=== PATIENT | male | born 1980 | race Hispanic/Latino ===

== ENCOUNTER 2024-05-21 20:29 | Emergency (ER) | payer SELFPAY ==
[~2024-05-21] VITALS: Ht 160 cm; Wt 90.7 kg
[2024-05-21 20:32] VITALS: TEMP 97.7
[2024-05-21 20:48] LABS: BASOPHILS % 0.3 % (0.0-1.0); EOSINOPHILS # (AUTO) 0.6 (0.0-0.4); EOSINOPHILS % 4.8 % (0.0-6.0); HEMATOCRIT 42.4 % (38.2-49.6); HEMOGLOBIN 14.4 g/dL (14.0-18.0); LYMPHOCYTES # (AUTO) 6.5 (1.0-3.2); LYMPHOCYTES % 54.6 % (18.0-39.1); MEAN CORPUSCULAR HEMOGLOBIN 31.5 pg (28-32); MEAN CORPUSCULAR VOLUME 92.8 fL (81-99); MONOCYTES # (AUTO) 0.3 (0.2-0.8); MONOCYTES % 2.8 % (4.4-11.3); NEUTROPHILS # (AUTO) 4.4 (2.1-6.9); NEUTROPHILS % 36.7 % (38.7-80.0); PLATELET COUNT 301 x10e3/uL (140-360); RED BLOOD COUNT 4.57 x10e6/uL (4.3-5.7); RED CELL DISTRIBUTION WIDTH 13.3 % (11.7-14.4); WHITE BLOOD COUNT 11.98 x10e3/uL (4.8-10.8)
[2024-05-21] MEDS: SODIUM CHLORIDE 0.9% 1000ML 1,000 ML IV ONE (20:52)
[2024-05-21] MEDS: METHYLPREDNISOLONE SOD SUCC 125 MG/2ML VIAL IV ONE (20:52)
[2024-05-21] MEDS: FAMOTIDINE 20 MG/2 ML VIAL IV STA (21:01)
[2024-05-21 21:04] LABS: CORONAVIRUS COVID-19 AG NEGATIVE (NEGATIVE); INFLUENZA A AG NEGATIVE (NEGATIVE); INFLUENZA B AG NEGATIVE (NEGATIVE)
[2024-05-21 21:18] LABS: ALBUMIN 3.8 g/dL (3.5-5.0); ALBUMIN/GLOBULIN RATIO 1.1 (0.8-2.0); ANION GAP 19.3 mmol/L (8-16); BILIRUBIN,TOTAL 0.4 mg/dL (0.2-1.2); CALCIUM 8.8 mg/dL (8.4-10.2); CREATININE, SERUM 1.14 mg/dL (0.72-1.25); TOTAL PROTEIN 7.3 g/dL (6.5-8.1)
[2024-05-21 21:26] LABS: POTASSIUM 3.3 mmol/L (3.5-5.1)
[2024-05-21 21:38] LABS: EOSINOPHILS % (MANUAL) 3 % (0-7); LYMPHOCYTES % (MANUAL) 42 % (19-48); MONOCYTES % (MANUAL) 1 % (3.4-9.0); NEUTROPHILS % (MANUAL) 39 % (40-74); RBC MORPHOLOGY COMMENT NORMAL; REACTIVE LYMPHOCYTES 15
[2024-05-21 21:39] LABS: PLATELET ESTIMATE ADEQUATE; PLATELET MORPHOLOGY COMMENT NORMAL
[2024-05-21 23:45] VITALS: PULSE 77; RESP 16
[2024-05-21] MEDS ORDERED: MEDROL4 M2 PO (23:51)
[2024-05-21 23:58] VITALS: BP 144/68; O2SAT 95
== END 2024-05-21 23:59 | disposition home or self-care (01) ==
LOC: ER 20:38
DX: R06.02 Shortness of breath (principal); L50.9 Urticaria, unspecified; T36.0X5A Adverse effect of penicillins, initial encounter; Z11.52 Encounter for screening for COVID-19; R94.31 Abnormal electrocardiogram [ECG] [EKG]
CPT/HCPCS: 36415; 71045; 80053; 84484; 85025; 87428; 93005; 99284; J2919; J7030